=== PATIENT | male | born 1985 | race African-American/Black ===

== ENCOUNTER 2018-02-08 | Emergency (ER) | payer SELFPAY ==
--- NOTE | 2018-02-08 16:36 | ER ---
Nurse's Notes [facility] Name: Cirilo England Age: 32 yrs Sex: Male : 1985 Arrival Date: 02/08/2018 Time: 14:37 Bed 18 Private MD: Diagnosis: Diarrhea, unspecified Presentation: 02/08 14:54 Presenting complaint: Patient states: i have diarrhea since and vomiting hj started last Thursday; pain is 5/10; denies fever and chills;. Transition of care: patient was not received from another setting of care. Onset of symptoms was February 08, 2018. Care prior to arrival: None. 14:54 Method Of Arrival: Ambulatory hj 14:54 Acuity: NEO 3 hj Triage Assessment: 14:55 General: Appears in no apparent distress. uncomfortable, Behavior is calm, cooperative, hj appropriate for age. Pain: Complains of pain in abdomen. GI: Reports lower abdominal pain, diarrhea, nausea, vomiting. Historical: - Allergies: 14:55 No Known Drug Allergies; hj - Home Meds: 14:55 None [Active]; hj - PMHx: 14:55 None; hj - PSHx: 14:55 ankle surgery; hj - Immunization history:: Adult Immunizations up to date. - Social history:: Smoking status: Patient/guardian denies using tobacco. Screenin:40 Abuse screen: Denies threats or abuse. Nutritional screening: No deficits noted. em Tuberculosis screening: No symptoms or risk factors identified. Fall Risk None identified. Assessment: 14:56 GI: Abdomen is non-distended. hj 16:30 General: Appears in no apparent distress. comfortable, Behavior is calm, cooperative, em appropriate for age. Pain: Denies pain. Neuro: Level of Consciousness is awake, alert, obeys commands, Oriented to person, place, time, situation. Cardiovascular: Capillary refill < 3 seconds Patient's skin is warm and dry. Respiratory: Airway is patent Respiratory effort is even, unlabored, Respiratory pattern is regular, symmetrical. GI: Abdomen is flat, Bowel sounds present X 4 quads. Reports diarrhea, nausea. : No signs and/or symptoms were reported regarding the genitourinary system. EENT: No signs and/or symptoms were reported regarding the EENT system. Derm: Skin is intact, Skin is pink, warm \T\ dry. Musculoskeletal: Range of motion: intact in all extremities. 16:50 Reassessment: Patient appears in no apparent distress at this time. I agree with the iw above assessment by Indra Berry LVN. Vital Signs: 14:56 BP 122 / 69; Pulse 71; Resp 18; Temp 97.7(TE); Pulse Ox 100% on R/A; Weight 86.64 kg; hj Height 5 ft. 9 in. (175.26 cm); Pain 5/10; 14:56 Body Mass Index 28.21 (86.64 kg, 175.26 cm) ED Course: 14:37 Patient arrived in ED. mr 14:55 Triage completed. hj 14:56 Arm band placed on left wrist. 16:25 Godfrey Coyle PA is PHCP. 16:25 Godfrey Waite MD is Attending Physician. cp 16:40 Patient has correct armband on for positive identification. Bed in low position. Call em light in reach. Side rails up X2. 16:40 No provider procedures requiring assistance completed. Patient did not have IV access em during this emergency room visit. 16:43 Indra Berry LVN is Primary Nurse. em Administered Medications: No medications were administered Outcome: 16:35 Discharge ordered by MD. cp 17:08 Discharged to home ambulatory. em 17:08 Condition: good 17:08 Discharge instructions given to patient, Instructed on discharge instructions, follow up and referral plans. Demonstrated understanding of instructions, follow-up care. 17:09 Patient left the ED. em Signatures: Caty Bernard BerryIndra LVN LVN em Aliya Mayer RN RN Redd Fitch RN RN Godfrey Coyle PA PA cp
--- NOTE | 2018-02-08 16:36 | EDPHYS ---
Physician Documentation [facility] Name: Cirilo England Age: 32 yrs Sex: Male : 1985 Arrival Date: 02/08/2018 Time: 14:37 Bed 18 Private MD: ED Physician Godfrey Waite HPI: 02/08 16:30 This 32 yrs old Black Male presents to ER via Ambulatory with complaints of cp Vomiting/Diarrhea. 16:30 The patient presents to the emergency department with diarrhea, that is intermittent, 1 cp times today. Onset: The symptoms/episode began/occurred last , improved today. Possible causes: unknown. Associated signs and symptoms: Pertinent positives: abdominal pain, Pertinent negatives: constipation, dysuria, fever, vomiting. Severity of symptoms: in the emergency department the symptoms have improved markedly. Historical: - Allergies: 14:55 No Known Drug Allergies; hj - Home Meds: 14:55 None [Active]; hj - PMHx: 14:55 None; hj - PSHx: 14:55 ankle surgery; hj - Immunization history:: Adult Immunizations up to date. - Social history:: Smoking status: Patient/guardian denies using tobacco. ROS: 16:31 Eyes: Negative for injury, pain, redness, and discharge. cp 16:31 Constitutional: Negative for body aches, chills, fever, poor PO intake. 16:31 ENT: Negative for drainage from ear(s), ear pain, sore throat, difficulty swallowing, difficulty handling secretions. 16:31 Cardiovascular: Negative for chest pain. 16:31 Respiratory: Negative for cough, shortness of breath, wheezing. 16:31 Abdomen/GI: Positive for abdominal pain, diarrhea, Negative for vomiting, constipation, anorexia, black/tarry stool, rectal bleeding. 16:31 Back: Negative for pain at rest, pain with movement, radiated pain. 16:31 : Negative for urinary symptoms. 16:31 Skin: Negative for cellulitis, rash. Exam: 16:32 Head/Face: Normocephalic, atraumatic. cp 16:32 Constitutional: The patient appears in no acute distress, alert, awake, comfortable, non-toxic, well developed, well nourished. 16:32 Eyes: Periorbital structures: appear normal, Conjunctiva: normal, no exudate, no injection, Sclera: no appreciated abnormality, Lids and lashes: appear normal, bilaterally. 16:32 ENT: External ear(s): are unremarkable, Nose: is normal, Mouth: is normal, Posterior pharynx: is normal, airway is patent, no erythema, no exudate. 16:32 Chest/axilla: Inspection: normal. 16:32 Cardiovascular: Rate: normal, Rhythm: regular. 16:32 Respiratory: the patient does not display signs of respiratory distress, Respirations: normal, no use of accessory muscles, no retractions, no splinting, no tachypnea. 16:32 Abdomen/GI: Inspection: abdomen appears normal, Bowel sounds: active, all quadrants, Palpation: soft, in all quadrants, mild abdominal tenderness, in the left lower quadrant, voluntary guarding, is not appreciated, involuntary guarding, is not appreciated. 16:32 Back: pain, is absent, ROM is normal. 16:32 Skin: cellulitis, is not appreciated, no rash present. Vital Signs: 14:56 BP 122 / 69; Pulse 71; Resp 18; Temp 97.7(TE); Pulse Ox 100% on R/A; Weight 86.64 kg; hj Height 5 ft. 9 in. (175.26 cm); Pain 5/10; 14:56 Body Mass Index 28.21 (86.64 kg, 175.26 cm) MDM: 16:25 Patient medically screened. cp 16:35 Data reviewed: vital signs, nurses notes, and as a result, I will discharge patient. 16:35 Differential diagnosis: gastritis, diverticulitis, viral gastroenteritis, cp gastroenteritis. Counseling: I had a detailed discussion with the patient and/or guardian regarding: the historical points, exam findings, and any diagnostic results supporting the discharge/admit diagnosis, to return to the emergency department if symptoms worsen or persist or if there are any questions or concerns that arise at home. 02/08 16:35 [place] [facility] [place]: note for work; Complete Time: 16:43 cp Administered Medications: No medications were administered Disposition: 02/09 06:46 Co-signature as Attending Physician, Godfrey Watie MD I agree with the assessment and tamela plan of care. Disposition: 02/08/18 16:35 Discharged to Home. Impression: Diarrhea, unspecified. - Condition is Stable. - Discharge Instructions: Food Choices to Help Relieve Diarrhea, Adult, Diarrhea. - Work release form, Medication Reconciliation Form, Thank You Letter, Antibiotic Education, Prescription Opioid Use form. - Follow up: Private Physician; When: 1 - 2 days; Reason: Recheck today's complaints. - Problem is new. - Symptoms have improved. Signatures: Godfrey Waite MD MD cha Munoz, Edgar, BANKING MANAGEMENT CONSULTING MANAGER BANKING MANAGEMENT CONSULTING MANAGER Redd Glez RN RN Godfrey Turner PA PA cp
== END 2018-02-08 17:09 | disposition home or self-care (01) ==
DX: R19.7 Diarrhea, unspecified (principal)
CPT/HCPCS: 99281

== ENCOUNTER 2018-05-21 08:29 | Emergency (ER) | payer SELFPAY ==
--- NOTE | 2018-05-21 09:21 | RAD REPORT ---
EXAM DESCRIPTION: RAD - Chest Pa And Lat (2 Views) - 05/21/2018 9:11 am CLINICAL HISTORY: CHEST PAIN Chest pain. COMPARISON: Chest Single View dated 12/15/2017; CHEST PA AND LAT 2 VIEW dated 08/11/2011; CHEST PA AND LAT 2 VIEW dated 03/28/2007 FINDINGS: The lungs are clear. The heart is normal in size. No displaced fractures. IMPRESSION: No acute or concerning finding suspected.
[2018-05-21 09:23] LABS: Absolute Lymphocytes (CBC) 2.4 K/uL (0.7-4.9); Absolute Monocytes 0.5 K/uL (0.1-1.3); Absolute Neutrophil 7.3 K/uL (1.8-8.0); Basophils % 0.4 % (0-1.3); Eosinophils % 0.4 % (0-4.4); Hematocrit 43.4 % (39.6-49.0); Lymphocytes % 23.2 % (15.3-44.8); MCH 30.5 pg (27.0-35.0); MCV 87.4 fL (80-100); MPV 8.9 fL (7.6-11.3); RBC Red Blood Cell Count 4.96 M/uL (4.33-5.43)
[2018-05-21 09:38] LABS: BUN Blood Urea Nitrogen 12 mg/dL (7-18); Bicarbonate 32 mmol/L (21-32); Glucose Level 119 mg/dL (74-106); Potassium 3.5 mmol/L (3.5-5.1); Sodium Level 140 mmol/L (136-145)
--- NOTE | 2018-05-21 09:49 | ER ---
Nurse's Notes [facility] Name: Cirilo England Age: 32 yrs Sex: Male : 1985 Arrival Date: 05/21/2018 Time: 08:31 Bed 7 Private MD: None, None Diagnosis: Acute pericarditis Presentation: 05/21 08:45 Presenting complaint: Patient states: C/O left side chest pain, under the left breast jl7 feels like pinching, x 2 days. Was intermittent, now it's constant. Denies SOB, N/V. Transition of care: patient was not received from another setting of care. Onset of symptoms was May 19, 2018. Risk Assessment: Do you want to hurt yourself or someone else? Patient reports no desire to harm self or others. Initial Sepsis Screen: Does the patient meet any 2 criteria? No. Patient's initial sepsis screen is negative. Does the patient have a suspected source of infection? No. Patient's initial sepsis screen is negative. Care prior to arrival: None. 08:45 Method Of Arrival: Ambulatory [facility] 08:45 Acuity: NEO 3 jl7 Triage Assessment: 08:45 General: Appears in no apparent distress. uncomfortable, Behavior is calm, cooperative, jl7 appropriate for age. Pain: Complains of pain in left breast Pain does not radiate. Pain currently is 6 out of 10 on a pain scale. Quality of pain is described as pinching, Pain began 2-3 days ago. Is continuous. EENT: No signs and/or symptoms were reported regarding the EENT system. Neuro: Level of Consciousness is awake, alert, obeys commands, Oriented to person, place, time, situation. Cardiovascular: Patient's skin is warm and dry. Respiratory: Airway is patent Respiratory effort is even, unlabored, Respiratory pattern is regular, symmetrical. GI: Patient currently denies diarrhea, nausea, vomiting. : No signs and/or symptoms were reported regarding the genitourinary system. Derm: Skin is dry, Skin is normal, Skin temperature is warm. Musculoskeletal: No signs and/or symptoms reported regarding the musculoskeletal system. Historical: - Allergies: 08:54 No Known Allergies; jl7 - Home Meds: 08:54 None [Active]; jl7 - PMHx: 08:54 None; jl7 - PSHx: 08:54 left ankle; jl7 - Immunization history:: Adult Immunizations not up to date. - Ebola Screening: : No symptoms or risks identified at this time. - Family history:: not pertinent. - Social history:: Smoking status: Patient/guardian denies using tobacco. - Hospitalizations: : No recent hospitalization is reported. Screenin:45 Abuse screen: Denies threats or abuse. Denies injuries from another. Nutritional jl7 screening: No deficits noted. Tuberculosis screening: No symptoms or risk factors identified. Fall Risk IV access (20 points). Assessment: 08:45 General: See triage assessment. jl7 09:45 Reassessment: Patient and/or family updated on plan of care and expected duration. Pain jl7 level reassessed. Patient is alert, oriented x 3, equal unlabored respirations, skin warm/dry/pink. Pain: Complains of pain in left breast Pain does not radiate. Pain currently is 6 out of 10 on a pain scale. Quality of pain is described as pinching. Vital Signs: 08:45 BP 118 / 89; Pulse 72; Resp 16 S; Temp 98.9(O); Pulse Ox 97% on R/A; Weight 86.18 kg jl7 (R); Height 5 ft. 9 in. (175.26 cm) (R); Pain 6/10; 09:45 BP 134 / 80; Pulse 69; Resp 16; Pulse Ox 99% ; jl7 08:45 Body Mass Index 28.06 (86.18 kg, 175.26 cm) jl7 ED Course: 08:31 Patient arrived in ED. mr 08:31 None, None is Private Physician. mr 08:45 No provider procedures requiring assistance completed. Patient maintains SpO2 jl7 saturation greater than 95% on room air. 08:45 Arm band placed on right wrist. jl7 08:45 Patient has correct armband on for positive identification. Placed in gown. Bed in low jl7 position. Call light in reach. Side rails up X 1. media monitor on. Pulse ox on. NIBP on. Warm blanket given. 08:46 Yue Sheffield RN is Primary Nurse. jl7 08:48 Wayne Benjamin MD is Attending Physician. rn 08:54 Triage completed. jl7 08:55 EKG done, by computer technology instructor. reviewed by Wayne Benjamin MD. at1 08:56 Inserted saline lock: 20 gauge in right antecubital area, using aseptic technique. ae1 Blood collected. 09:07 Patient moved to radiology AMBULATED, REFUSED WHEELCHAIR. jb2 09:10 X-ray completed. Patient tolerated procedure well. Patient moved back from radiology. jb2 09:10 XRAY Chest Pa And Lat (2 Views) In Process Unspecified. EDMS 10:03 IV discontinued, intact, bleeding controlled, No redness/swelling at site. Pressure jl7 dressing applied. Administered Medications: No medications were administered Outcome: 09:49 Discharge ordered by . rn 10:03 Discharged to home ambulatory, with family. jl7 10:03 Condition: stable 10:03 Discharge instructions given to patient, family, Instructed on discharge instructions, follow up and referral plans. medication usage, Demonstrated understanding of instructions, follow-up care, medications, Prescriptions given X 1. 10:03 Patient left the ED. jl7 Signatures: Dispatcher [employer] EDTN Caty Bernard mr CoelloRosendo jb2 Wayne Benjamin MD MD rn gonzales, Amanda, lead carpenter EKG Tat1 Chan Wong, RN RN ae1 Yue Sheffield, RN RN jl7
--- NOTE | 2018-05-21 09:50 | EDPHYS ---
Physician Documentation [facility] Name: Cirilo England Age: 32 yrs Sex: Male : 1985 Arrival Date: 05/21/2018 Time: 08:31 Bed 7 Private MD: None, None ED Physician Wayne Benjamin HPI: 05/21 09:44 This 32 yrs old Black Male presents to ER via Ambulatory with complaints of Chest Pain. rn 09:44 The patient or guardian reports chest pain that is located primarily in the anterior rn chest wall, left. The pain does not radiate. Associated signs and symptoms: Pertinent positives: None. Pertinent negatives: abdominal pain, cough, diaphoresis, near syncope, palpitations, shortness of breath, syncope, vomiting. The chest pain is described as aching, sharp. Duration: The patient or guardian reports multiple episodes, that are intermittent. Modifying factors: The symptoms are alleviated by nothing. the symptoms are aggravated by nothing. Severity of pain: At its worst the pain was mild in the emergency department the pain is unchanged. The patient has not experienced similar symptoms in the past. The patient has not recently seen a physician. Reports left sided chest pain, no radiation, not worse with exertion, no recent trauma, no fever/cough, no recent surgery, no famhx of early/sudden cardiac .. Historical: - Allergies: 08:54 No Known Allergies; jl7 - Home Meds: 08:54 None [Active]; jl7 - PMHx: 08:54 None; jl7 - PSHx: 08:54 left ankle; jl7 - Immunization history:: Adult Immunizations not up to date. - Ebola Screening: : No symptoms or risks identified at this time. - Family history:: not pertinent. - Social history:: Smoking status: Patient/guardian denies using tobacco. - Hospitalizations: : No recent hospitalization is reported. ROS: 09:44 Constitutional: Negative for fever, chills, and weight loss, Eyes: Negative for injury, rn pain, redness, and discharge, Neck: Negative for injury, pain, and swelling, Cardiovascular: Negative for palpitations, and edema, Respiratory: Negative for shortness of breath, cough, wheezing, and pleuritic chest pain, Abdomen/GI: Negative for abdominal pain, nausea, vomiting, diarrhea, and constipation, MS/Extremity: Negative for injury and deformity, Skin: Negative for injury, rash, and discoloration, Neuro: Negative for headache, weakness, numbness, tingling, and seizure. Exam: 09:44 Constitutional: This is a well developed, well nourished patient who is awake, alert, rn and in no acute distress. Head/Face: Normocephalic, atraumatic. Eyes: Pupils equal round and reactive to light, extra-ocular motions intact. Lids and lashes normal. Conjunctiva and sclera are non-icteric and not injected. Cornea within normal limits. Periorbital areas with no swelling, redness, or edema. Cardiovascular: Regular rate and rhythm with a normal S1 and S2. No gallops, murmurs, or rubs. Normal PMI, no JVD. No pulse deficits. Respiratory: Lungs have equal breath sounds bilaterally, clear to auscultation and percussion. No rales, rhonchi or wheezes noted. No increased work of breathing, no retractions or nasal flaring. Abdomen/GI: Soft, non-tender, with normal bowel sounds. No distension or tympany. No guarding or rebound. No evidence of tenderness throughout. MS/ Extremity: Pulses equal, no cyanosis. Neurovascular intact. Full, normal range of motion. Equal circumference. Neuro: Awake and alert, GCS 15, oriented to person, place, time, and situation. Cranial nerves II-XII grossly intact. Motor strength 5/5 in all extremities. Sensory grossly intact. Cerebellar exam normal. Normal gait. Vital Signs: 08:45 BP 118 / 89; Pulse 72; Resp 16 S; Temp 98.9(O); Pulse Ox 97% on R/A; Weight 86.18 kg 7 (R); Height 5 ft. 9 in. (175.26 cm) (R); Pain 6/10; 09:45 BP 134 / 80; Pulse 69; Resp 16; Pulse Ox 99% ; jl7 08:45 Body Mass Index 28.06 (86.18 kg, 175.26 cm) 7 MDM: 08:48 Patient medically screened. rn 09:44 Differential diagnosis: acute pericarditis, anxiety, coronary artery disease chest wall rn pain, costochondritis, gastroesophageal reflux disease (GERD), pleurisy, pneumothorax, pulmonary embolus. Data reviewed: vital signs, nurses notes, lab test result(s), EKG, radiologic studies, plain films, and as a result, I will discharge patient. Counseling: I had a detailed discussion with the patient and/or guardian regarding: the historical points, exam findings, and any diagnostic results supporting the discharge/admit diagnosis, lab results, radiology results, the need for outpatient follow up, to return to the emergency department if symptoms worsen or persist or if there are any questions or concerns that arise at home. Special discussion: Based on the patient's history, exam, and Dx evaluation, there is no indication for emergent intervention or inpatient Tx. It is understood by the patient/guardian that if the Sx's persist or worsen they need to return immediately for re-evaluation. I discussed with the patient/guardian in detail that at this point there is no indication for admission to the hospital. It is understood, however, that if the symptoms persist or worsen the patient needs to return immediately for re-evaluation. ED course: Meets PERC criteria, d-dimer canceled, will dc home with ibuprofen, ECG shows early repolarization vs pericarditis. . 05/21 08:55 Order name: CBC with Diff; Complete Time: 09:44 rn 05/21 08:55 Order name: Basic Metabolic Panel; Complete Time: 09:44 rn 05/21 08:55 Order name: Troponin (emerg Dept Use Only); Complete Time: 09:50 rn 05/21 08:55 Order name: EKG; Complete Time: 08:55 rn 05/21 08:55 Order name: XRAY Chest Pa And Lat (2 Views); Complete Time: 09:23 rn 05/21 08:55 Order name: IV Start; Complete Time: 08:56 rn 05/21 08:55 Order name: EKG - Nurse/Tech; Complete Time: 08:56 rn Administered Medications: No medications were administered Disposition: 05/21/18 09:49 Discharged to Home. Impression: Acute pericarditis. - Condition is Stable. - Discharge Instructions: Nonspecific Chest Pain, Pericarditis. - Prescriptions for Ibuprofen 800 mg Oral Tablet - take 1 tablet by ORAL route every 12 hours As needed take with food; 20 tablet. - Medication Reconciliation Form, Thank You Letter, Antibiotic Education, Prescription Opioid Use, Work release form form. - Follow up: Private Physician; When: As needed; Reason: Recheck today's complaints, Re-evaluation by your physician. - Problem is new. - Symptoms have improved. Signatures: Dispatcher [employer] [facility] Wayne Benjamin MD MD rn Gallardo, Ana ag Leal, Jahala, RN RN jl7 Corrections: (The following items were deleted from the chart) 09:46 09:46 Labs - recollect needed ordered. ag 09:49 08:55 D-DIMER+[id number].BRZ ordered. [facility] 10:03 09:49 05/21/2018 09:49 Discharged to Home. Impression: Acute pericarditis. Condition is jl7 Stable. Forms are Medication Reconciliation Form, Thank You Letter, Antibiotic Education, Prescription Opioid Use. Follow up: Private Physician; When: As needed; Reason: Recheck today's complaints, Re-evaluation by your physician. Problem is new. Symptoms have improved. rn
--- NOTE | 2018-05-21 12:43 | EKG ---
Test Date: 2018-05-21 Test Time: 08:55:22 Hand Cooper Helper: GUERO MEASUREMENT RESULTS: Intervals: Rate: 72 GA: 156 QRSD: 88 QT: 364 QTc: 398 [place]: P: 44 GA: 156 QRS: 24 T: 30 INTERPRETIVE STATEMENTS: Normal sinus rhythm Early repolarization Normal ECG Compared to ECG 09/18/2011 17:14:53 No significant changes Electronically Signed On 05-21-18 12:43:36 CDT by Phillip De Jesus
== END 2018-05-21 10:03 | disposition home or self-care (01) ==
LOC: ER 08:29
DX: I30.9 Acute pericarditis, unspecified (principal)
CPT/HCPCS: 36415; 71046; 80048; 84484; 85025; 93005; 99285

== ENCOUNTER 2020-08-20 16:06 | Emergency (ER) | payer SELFPAY ==
[2020-08-20] MEDS ORDERED: IBUPROFEN 400 MG TAB ONE (16:55)
[2020-08-20] MEDS ORDERED: AMOX/K CLAV 875 MG TAB ONE (17:40)
--- NOTE | 2020-08-20 18:21 | EDPHYS ---
Physician Documentation [facility] Name: Cirilo England Age: 35 yrs Sex: Male : 1985 Arrival Date: 08/20/2020 Time: 16:11 Bed 19 Private MD: ED Physician Wayne Benjamin HPI: 08/20 18:50 This 35 yrs old Black Male presents to ER via Ambulatory with complaints of Cough, kb Chest Pain. 18:50 The patient or guardian reports cough, that is intermittent, described as mild, with no kb sputum, flu symptoms, myalgias. Onset: The symptoms/episode began/occurred Onset: The symptoms/episode began/occurred 6 day(s) ago. The patient has not experienced similar symptoms in the past. The patient has not recently seen a physician. 18:51 Severity of symptoms: At their worst the symptoms were moderate, in the emergency kb department the symptoms are unchanged. Modifying factors: The symptoms are alleviated by nothing, the symptoms are aggravated by nothing. Associated signs and symptoms: Pertinent positives: rhinorrhea, sore throat, Pertinent negatives: chest pain, diarrhea, ear ache, fever, nausea, vomiting. 18:51 Pt reports he started having abd pain 6 days ago that got better, now is having cough, kb sore throat and intermittent shortness of breath. Was unaware of fever until arrival. . Historical: - Allergies: 16:27 No Known Drug Allergies; ll1 - PSHx: 16:27 ankle sx; ll1 - Immunization history:: Flu vaccine is not up to date. - Social history:: Smoking status: Patient denies any tobacco usage or history of. ROS: 18:49 Neck: Negative for injury, pain, and swelling, Cardiovascular: Negative for chest pain, kb palpitations, and edema, Back: Negative for injury and pain, MS/Extremity: Negative for injury and deformity, Skin: Negative for injury, rash, and discoloration. 18:49 Constitutional: Positive for fatigue, malaise. 18:49 Respiratory: Positive for cough, Negative for dyspnea on exertion, hemoptysis, orthopnea, pleurisy, shortness of breath, sputum production, wheezing. 18:49 Abdomen/GI: Positive for abdominal pain, Negative for nausea, vomiting, and diarrhea. 18:49 Neuro: Positive for headache. Exam: 18:49 Constitutional: This is a well developed, well nourished patient who is awake, alert, kb and in no acute distress. Head/Face: Normocephalic, atraumatic. ENT: Nares patent. No nasal discharge, no septal abnormalities noted. Tympanic membranes are normal and external auditory canals are clear. Oropharynx with no redness, swelling, or masses, exudates, or evidence of obstruction, uvula midline. Mucous membranes moist. Neck: Trachea midline, no thyromegaly or masses palpated, and no cervical lymphadenopathy. Supple, full range of motion without nuchal rigidity, or vertebral point tenderness. No Meningismus. Chest/axilla: Normal chest wall appearance and motion. Nontender with no deformity. No lesions are appreciated. Cardiovascular: Regular rate and rhythm with a normal S1 and S2. No gallops, murmurs, or rubs. Normal PMI, no JVD. No pulse deficits. Respiratory: Lungs have equal breath sounds bilaterally, clear to auscultation and percussion. No rales, rhonchi or wheezes noted. No increased work of breathing, no retractions or nasal flaring. Abdomen/GI: Soft, non-tender, with normal bowel sounds. No distension or tympany. No guarding or rebound. No evidence of tenderness throughout. Skin: Warm, dry with normal turgor. Normal color with no rashes, no lesions, and no evidence of cellulitis. MS/ Extremity: Pulses equal, no cyanosis. Neurovascular intact. Full, normal range of motion. Neuro: Awake and alert, GCS 15, oriented to person, place, time, and situation. Cranial nerves II-XII grossly intact. Motor strength 5/5 in all extremities. Sensory grossly intact. Cerebellar exam normal. Normal gait. Vital Signs: 16:24 BP 128 / 85; Pulse 112; Resp 18; Temp 103.3; Pulse Ox 96% on R/A; Weight 92.99 kg; ll1 Height 5 ft. 9 in. (175.26 cm); Pain 8/10; 17:35 BP 111 / 48; Pulse 93; Resp 17; Temp 99.5; Pulse Ox 95% ; bp 18:26 BP 117 / 52; Pulse 87; Resp 17; Pulse Ox 95% ; bp 16:24 Body Mass Index 30.27 (92.99 kg, 175.26 cm) ll1 MDM: 16:33 Patient medically screened. kb 18:49 Data reviewed: vital signs, nurses notes. Data interpreted: Pulse oximetry: on room air kb is 95 %. Interpretation: normal. Counseling: I had a detailed discussion with the patient and/or guardian regarding: the historical points, exam findings, and any diagnostic results supporting the discharge/admit diagnosis, lab results, radiology results, the need for outpatient follow up, a family practitioner, to return to the emergency department if symptoms worsen or persist or if there are any questions or concerns that arise at home. 08/20 16:33 Order name: Flu; Complete Time: 17:31 kb 08/20 16:33 Order name: Strep; Complete Time: 17:23 kb 08/20 16:33 Order name: Chest Single View XRAY kb Administered Medications: 16:45 Drug: Ibuprofen 800 mg Route: PO; bp 17:33 Follow up: Response: Temperature is decreased bp 17:33 Drug: Augmentin 875 mg Route: PO; bp 17:33 Follow up: Response: No adverse reaction bp Disposition: 18:50 Co-signature as Attending Physician, Wayne Benjamin MD. rn Disposition: 08/20/20 18:20 Discharged to Home. Impression: Streptococcal pharyngitis. - Condition is Stable. - Discharge Instructions: Strep Throat, [id number]. - Prescriptions for Augmentin 875- 125 mg Oral Tablet - take 1 tablet by ORAL route every 12 hours for 10 days; 20 tablet. - Medication Reconciliation Form, Thank You Letter, Antibiotic Education, Prescription Opioid Use, Work release form form. - Follow up: Emergency Department; When: As needed; Reason: Worsening of condition. Follow up: Private Physician; When: 2 - 3 days; Reason: Recheck today's complaints, Continuance of care, Re-evaluation by your physician. Signatures: Dispatcher [employer] EDAZ Ora Baca, BELTING INSPECTOR-C BELTING INSPECTOR-Wayne Stephen MD MD rn Peltier, Brian RN RN Tri Chandra RN RN ll1 Corrections: (The following items were deleted from the chart) 18:28 18:20 08/20/2020 18:20 Discharged to Home. Impression: Streptococcal pharyngitis. bp Condition is Stable. Forms are Medication Reconciliation Form, Thank You Letter, Antibiotic Education, Prescription Opioid Use. Follow up: Emergency Department; When: As needed; Reason: Worsening of condition. Follow up: Private Physician; When: 2 - 3 days; Reason: Recheck today's complaints, Continuance of care, Re-evaluation by your physician. kb 18:51 18:50 Onset: The symptoms/episode began/occurred [facility]
--- NOTE | 2020-08-20 18:21 | ER ---
Nurse's Notes [facility] Name: Cirilo England Age: 35 yrs Sex: Male : 1985 Arrival Date: 08/20/2020 Time: 16:11 Bed 19 Private MD: Diagnosis: Streptococcal pharyngitis Presentation: 08/20 16:24 Chief complaint: Patient states: Fatigue, abdominal pain started last Thursday. Feels ll1 hot at home. Cough and CP began today with SOB. Coronavirus screen: Client denies travel out of the [place] in the last 14 days. congestion, cough unrelated to allergies, difficulty breathing, fatigue, fever, muscle pain, sore throat, Client presents with at least one sign or symptom that may indicate coronavirus-19. Standard/surgical mask placed on the client. Ebola Screen: Patient denies travel to an Ebola-affected area in the 21 days before illness onset. Initial Sepsis Screen: Does the patient meet any 2 criteria? Temp <36.0*C (96.8*F)) or > 38.3*C (100.9*F). HR > 90 bpm. Yes Does the patient have a suspected source of infection? Yes: Productive cough/pneumonia. Risk Assessment: Do you want to hurt yourself or someone else? Patient reports no desire to harm self or others. Onset of symptoms was August 15, 2020. 16:24 Method Of Arrival: Ambulatory ll1 16:24 Acuity: NEO 2 ll1 Triage Assessment: 16:30 General: Appears in no apparent distress. uncomfortable, ill, Behavior is calm, bp cooperative, appropriate for age. Pain: Complains of pain in chest. EENT: Reports nasal congestion. Neuro: No deficits noted. Cardiovascular: Reports CHEST CONGESTION. Respiratory: Reports cough that is. GI: No signs and/or symptoms were reported involving the gastrointestinal system. : No signs and/or symptoms were reported regarding the genitourinary system. Derm: No deficits noted. Musculoskeletal: No deficits noted. Historical: - Allergies: 16:27 No Known Drug Allergies; ll1 - PSHx: 16:27 ankle sx; ll1 - Immunization history:: Flu vaccine is not up to date. - Social history:: Smoking status: Patient denies any tobacco usage or history of. Screenin:30 Abuse screen: Denies threats or abuse. Denies injuries from another. Nutritional bp screening: No deficits noted. Tuberculosis screening: No symptoms or risk factors identified. Fall Risk None identified. Assessment: 16:30 General: SEE TRIAGE NOTE. Pain: Pain does not radiate. Pain began 2-3 days ago. bp 17:36 Reassessment: TEMP IMPROVED, VS STABLE ON MONITOR. DISPO PENDING. bp 18:26 Reassessment: PT D/C HOME AMBULATORY, DX WITH STREP PHARYNGITIS. bp Vital Signs: 16:24 BP 128 / 85; Pulse 112; Resp 18; Temp 103.3; Pulse Ox 96% on R/A; Weight 92.99 kg; ll1 Height 5 ft. 9 in. (175.26 cm); Pain 8/10; 17:35 BP 111 / 48; Pulse 93; Resp 17; Temp 99.5; Pulse Ox 95% ; bp 18:26 BP 117 / 52; Pulse 87; Resp 17; Pulse Ox 95% ; bp 16:24 Body Mass Index 30.27 (92.99 kg, 175.26 cm) ll1 ED Course: 16:11 Patient arrived in ED. ds1 16:26 Triage completed. ll1 16:27 Arm band placed on. ll1 16:30 Patient has correct armband on for positive identification. Bed in low position. Call bp light in reach. Side rails up X2. Pulse ox on. NIBP on. 16:33 Ora Baca FNP-C is [facility]. kb 16:33 Wayne Benjamin MD is Attending Physician. kb 16:40 Saleem Perez, TANNER is Primary Nurse. bp 17:48 Chest Single View XRAY In Process Unspecified. EDMS 18:27 No provider procedures requiring assistance completed. Patient did not have IV access bp during this emergency room visit. Patient maintains SpO2 saturation greater than 95% on room air. Administered Medications: 16:45 Drug: Ibuprofen 800 mg Route: PO; bp 17:33 Follow up: Response: Temperature is decreased bp 17:33 Drug: Augmentin 875 mg Route: PO; bp 17:33 Follow up: Response: No adverse reaction bp Outcome: 18:20 Discharge ordered by . kb 18:27 Discharged to home ambulatory. bp 18:27 Condition: stable 18:27 Discharge instructions given to patient, Instructed on discharge instructions, follow up and referral plans. medication usage, Demonstrated understanding of instructions, follow-up care, medications, Prescriptions given X 1. 18:28 Patient left the ED. bp Addendum: 08/27/2020 09:38 Addendum: Radiology Result: Developing left mid lung infiltrate/pneumonia. Called to a a5 check on pt, pt states feeling better. Dr. Waite states Augmentin should cover for the pneumonia. Pt verbalizes understanding to follow-up with PCP. Signatures: Dispatcher [employer] EDMI Ora Baca, RAJWINDER-Leland SENIOR PRINCIPAL PROCESS ENGINEER-Emiliana Delaney ds1 Deloris Berry, RN RN aa5 Saleem Perez RN RN bp Tri Ashton RN RN ll1
--- NOTE | 2020-08-20 18:52 | RAD REPORT ---
EXAM DESCRIPTION: RAD - Chest Single View - 08/20/2020 5:48 pm CLINICAL HISTORY: COUGH Chest pain. COMPARISON: Chest Pa And Lat (2 Views) dated 05/21/2018; Chest Single View dated 12/15/2017; CHEST PA A ND LAT 2 VIEW dated 08/11/2011; CHEST PA AND LAT 2 VIEW dated 03/28/2007 FINDINGS: Portable technique limits examination quality. Mild left mid lung opacities seen suspicious for developing pneumonia/ infiltrate. The heart is morteza l in size. No displaced fractures. IMPRESSION: Developing left mid lung infiltrate/pneumonia.
[2020-08-20 19:46] VITALS: TEMP 99.5; O2SAT 95
[2020-08-20 19:47] VITALS: BP 117/52
== END 2020-08-20 18:28 | disposition home or self-care (01) ==
LOC: ER 16:06
DX: J02.0 Streptococcal pharyngitis (principal)
CPT/HCPCS: 71045; 87081; 87804; 99284

== ENCOUNTER 2021-09-25 22:19 | Emergency (ER) | payer SELFPAY ==
[2021-09-25] MEDS ORDERED: TETANUS & DIPHTHERIA TOX,ADULT 0.5 ML VIAL ONE (23:42)
--- NOTE | 2021-09-26 01:11 | ER ---
Nurse's Notes [facility] Name: Cirilo England Age: 36 yrs Sex: Male : 1985 Arrival Date: 09/25/2021 Time: 22:28 Bed 13 Private MD: Diagnosis: Burn of second degree of forearm-right Presentation: 09/25 22:50 Chief complaint: Patient states: he was at work yesterday and received burn to right bb forearm from caustic detergent arm was flushed yesterday but it looks worse today denies pain at this time. Coronavirus screen: At this time, the client does not indicate any symptoms associated with coronavirus-19. Ebola Screen: No symptoms or risks identified at this time. 22:50 Method Of Arrival: Ambulatory bb 23:02 Initial Sepsis Screen: Does the patient meet any 2 criteria? No. Patient's initial bb sepsis screen is negative. Does the patient have a suspected source of infection? No. Patient's initial sepsis screen is negative. Risk Assessment: Do you want to hurt yourself or someone else? Patient reports no desire to harm self or others. Onset of symptoms was September 24, 2021. 23:02 Acuity: NEO 5 bb 23:20 Note Poison Control was contacted regarding chemical burn. Poison Control instructions [facility] were as followed: Irrigate affected area, give symptomatic and supportive care as needed, obtain Ekg and Electrolytes levels, consult burn unit, ensure Tetanus is up to date. Case # [id number]. Triage Assessment: 09/26 01:47 General: Behavior is calm. 3 01:48 Injury Description: Patient sustained third-degree burn(s) to right arm. ja3 Historical: - Allergies: 09/25 23:03 No Known Allergies; bb - Home Meds: 23:03 None [Active]; bb - PMHx: 23:03 None; bb - PSHx: 23:03 ankle x 2; neck surgery; bb - Immunization history:: Adult Immunizations up to date, Client reports having NOT received the Covid vaccine. - Social history:: Smoking status: unknown. Screenin:06 Abuse screen: Denies threats or abuse. Nutritional screening: No deficits noted. ja3 Tuberculosis screening: No symptoms or risk factors identified. Fall Risk None identified. 09/26 01:43 Abuse screen: Denies threats or abuse. ja3 Assessment: 09/25 23:00 General: Appears in no apparent distress. Pain: Denies pain. Derm: Wound noted right ja3 arm Wound is Several scattered, large fluid filled blisters on right upper forearm, open areas noted where previous blisters have popped and area is not covered by skin any longer. Skin is reddened and discolored from chemical burn. Injury Description: Chemical burn from caustic detergent. Vital Signs: 22:50 BP 141 / 85; Pulse 76; Resp 16; Temp 98.1(O); Pulse Ox 98% on R/A; Weight 90.72 kg (R); bb Height 5 ft. 9 in. (175.26 cm) (R); Pain 0/10; 23:05 BP 127 / 85; Pulse 70; Resp 15; Temp 98.7; Pulse Ox 98% ; Pain 3/10; ja3 22:50 Body Mass Index 29.53 (90.72 kg, 175.26 cm) bb ED Course: 22:28 Patient arrived in ED. cf2 22:47 Godfrey Coyle PA is PHCP. cp 22:47 Alea Mendes MD is Attending Physician. cp 23:03 Triage completed. bb 23:03 Arm band placed on Patient placed in an exam room, on a stretcher, on pulse oximetry. bb 23:07 Patient has correct armband on for positive identification. Bed in low position. Call ja3 light in reach. Side rails up X 1. tubular splitting machine tender on. Pulse ox on. NIBP on. Door closed. Noise minimized. Warm blanket given. 23:07 No provider procedures requiring assistance completed. ja3 23:10 Sloan Ramirez, TANNER is Primary Nurse. ja3 09/26 01:43 No provider procedures requiring assistance completed. ja3 01:47 Bandage applied. ja3 01:48 Patient did not have IV access during this emergency room visit. ja3 Administered Medications: 00:12 Drug: Tetanus-Diphtheria Toxoid Adult 0.5 ml {Arts Manager: [employer]. Exp: jaUrsula 03/29/2023. Lot #: [id number]. } Route: IM; Site: right deltoid; 00:13 Follow up: Response: No adverse reaction ja3 01:40 Follow up: Response: No adverse reaction ja3 Outcome: 01:10 Discharge ordered by MD. duarte 01:37 Discharged to home ambulatory. ja3 01:37 Condition: good 01:37 Discharge instructions given to patient. 01:49 Patient left the ED. ja3 Signatures: Loly Mensah, RN RN Godfrey Jordan PA PA cp Frazier, Celesta 2 Sloan Ramirez RN RN ja3
--- NOTE | 2021-09-26 01:11 | EDPHYS ---
Physician Documentation [facility] Name: Ciriol England Age: 36 yrs Sex: Male : 1985 Arrival Date: 09/25/2021 Time: 22:28 Bed 13 Private MD: ED Physician Alea Mendes HPI: 09/25 22:54 This 36 yrs old Black Male presents to ER via Unassigned with complaints of Chemical cp Burn. 22:55 The patient presents with a burn as a result of a chemical exposure, caustic detergent, cp at work, is located on the right forearm. 22:55 Onset: The symptoms/episode began/occurred yesterday. Burn type and severity: 2nd cp degree: approximately 2.5% total body surface area of second degree injury, of the right forearm. Associated signs and symptoms: none. Historical: - Allergies: 23:03 No Known Allergies; bb - Home Meds: 23:03 None [Active]; bb - PMHx: 23:03 None; bb - PSHx: 23:03 ankle x 2; neck surgery; bb - Immunization history:: Adult Immunizations up to date, Client reports having NOT received the Covid vaccine. - Social history:: Smoking status: unknown. ROS: 23:00 Constitutional: Negative for fever. cp 23:00 Respiratory: Negative for cough, shortness of breath, wheezing. 23:00 Abdomen/GI: Negative for abdominal pain, nausea, vomiting, and diarrhea. 23:00 Skin: Positive for burn, of the right forearm. 23:00 Cardiovascular: Negative for chest pain. cp 23:00 Neuro: Negative for headache. 23:00 All other systems are negative. Exam: 23:05 Constitutional: The patient appears in no acute distress, alert, awake, comfortable, cp non-toxic, well developed, well nourished. 23:05 Head/Face: Normocephalic, atraumatic. cp 23:05 Cardiovascular: Rate: normal. 23:05 Respiratory: the patient does not display signs of respiratory distress, Respirations: normal, no use of accessory muscles, no retractions, labored breathing, is not present. 23:05 Skin: injury, burn(s), 2nd degree burn injury covers approximately 2.5% of the total body surface area, and is located on the right forearm, that can be described as without bleeding, mild swelling, multiple skin blisters. 23:57 ECG was reviewed by the Attending Physician. cp Vital Signs: 22:50 BP 141 / 85; Pulse 76; Resp 16; Temp 98.1(O); Pulse Ox 98% on R/A; Weight 90.72 kg (R); bb Height 5 ft. 9 in. (175.26 cm) (R); Pain 0/10; 23:05 BP 127 / 85; Pulse 70; Resp 15; Temp 98.7; Pulse Ox 98% ; Pain 3/10; ja3 22:50 Body Mass Index 29.53 (90.72 kg, 175.26 cm) bb MDM: 22:50 Patient medically screened. 09/26 00:00 Differential diagnosis: 1st degree huang, 2nd degree huang, 3rd degree huang, multiple cp trauma. 01:10 Data reviewed: vital signs, nurses notes, and as a result, I will discharge patient. 01:10 Counseling: I had a detailed discussion with the patient and/or guardian regarding: the cp historical points, exam findings, and any diagnostic results supporting the discharge/admit diagnosis, the need for outpatient follow up, [facility] in [place], to return to the emergency department if symptoms worsen or persist or if there are any questions or concerns that arise at home. Response to treatment: the patient's symptoms have markedly improved after treatment. 09/25 22:51 Order name: Wound Care: irrigate wound; Complete Time: 00:12 cp 09/25 23:25 Order name: EKG; Complete Time: 23:26 09/25 23:25 Order name: EKG - Nurse/Tech; Complete Time: 00:13 cp 09/25 23:57 Order name: Dressing - Wound: non-stick, bacitracin over burn; Complete Time: 01:40 cp EC/10 23:57 Rate is 79 beats/min. Rhythm is regular. RI interval is normal. QRS interval is normal. cp QT interval is normal. T waves are Inverted in lead aVR. Interpreted by me. Reviewed by me. Administered Medications: 09/26 00:12 Drug: Tetanus-Diphtheria Toxoid Adult 0.5 ml {Deck And Hull Assembler: Sec[employer] Mail. Exp: ja3 03/29/2023. Lot #: [id number]. } Route: IM; Site: right deltoid; 00:13 Follow up: Response: No adverse reaction ja3 01:40 Follow up: Response: No adverse reaction ja3 Disposition: 01:20 Chart complete. cp 05:46 Co-signature as Attending Physician, Alea Mendes MD I agree with the assessment and sp3 plan of care. Disposition Summary: 09/26/21 01:10 Discharge Ordered Location: Home cp Problem: new cp Symptoms: have improved cp Condition: Stable cp Diagnosis - Burn of second degree of forearm - right cp Followup: cp - With: Private Physician - When: Today - Reason: Wound Recheck, [facility] \[id number], call [phone] Discharge Instructions: - Discharge Summary Sheet cp - Chemical Burn, Adult cp - Second-Degree Burn, Adult cp Forms: - Medication Reconciliation Form cp - Thank You Letter cp - Antibiotic Education cp - Prescription Opioid Use cp Signatures: Dispatcher [employer] Loly Schmitz RN RN bb Page, Corey, PA PA cp Alea Mendes MD MD sp3 Sloan Ramirez RN RN ja3 Corrections: (The following items were deleted from the chart) 01:50 00:00 Differential diagnosis: 1st degree huang, 2nd degree huang, 3rd degree huang, cp cellulitis, multiple trauma cp
[2021-09-26 03:02] VITALS: BP 127/85; TEMP 98.7; O2SAT 98
--- NOTE | 2021-09-27 20:41 | EKG ---
Test Date: 2021-09-25 Test Time: 23:51:18 Steel Buffer: LYNN MEASUREMENT RESULTS: Intervals: Rate: 79 NC: 138 QRSD: 76 QT: 374 QTc: 428 [place]: P: -1 NC: 138 QRS: 29 T: 49 INTERPRETIVE STATEMENTS: Normal sinus rhythm Early repolarization Normal ECG Compared to ECG 05/21/2018 08:55:22 No significant changes Electronically Signed On 09-27-21 20:35:30 DIRECTOR OF STUDENT AID by Hugo Blair
== END 2021-09-26 01:49 | disposition home or self-care (01) ==
LOC: ER 22:19
DX: T22.611A Corrosion of second degree of right forearm, initial encounter (principal); T79.9XXA Unspecified early complication of trauma, initial encounter; Y93.89 Activity, other specified; Y92.69 Other specified industrial and construction area as the place of occurrence of the external cause; Y99.0 Civilian activity done for income or pay; Z23 Encounter for immunization
CPT/HCPCS: 90471; 90714; 93005; 99284

== ENCOUNTER → 2024-01-21 | Emergency (ER) | payer BC, SELFPAY ==
--- NOTE | 2024-01-21 16:08 | EDPHYS ---
Physician Documentation [facility] Name: Cirilo England Age: 38 yrs Sex: Male : 1985 Arrival Date: 01/21/2024 Time: 15:28 Bed IW2 Private MD: ED Physician Donnie Moore HPI: 01/20 16:07 This 38 yrs old Black Male presents to ER via Ambulatory with complaints of Arm Burn - ms3 both, Burn on Nose - -Face. 16:07 38-year-old male with no past medical history presents to the emergency department 1 ms3 hour after having hot fluid from a car he was working on spilled on his right arm and/onto his face. Patient states his discomfort is a 5/10. Patient states his tetanus is up-to-date at this time. Patient denies any alleviating or inciting factors. Historical: - PSHx: 15:37 ankle x 2; neck surgery; kd3 - Immunization history:: Adult Immunizations up to date. - Social history:: Smoking status: unknown. ROS: 16:07 Constitutional: Negative for fever, and chills. Neck: Negative for injury, pain, and ms3 swelling, Cardiovascular: Negative for chest pain, and palpitations. Respiratory: Negative for shortness of breath, cough, wheezing, and pleuritic chest pain, Abdomen/GI: Negative for abdominal pain, nausea, vomiting, diarrhea, and constipation, MS/Extremity: Negative for injury and deformity, 16:07 Skin: Positive for burn, Exam: 16:07 Constitutional: This is a well developed, well nourished patient who is awake, alert, ms3 and in no acute distress. Head/Face: Normocephalic, atraumatic. Neck: Trachea midline, no cervical lymphadenopathy. Supple, full range of motion without nuchal rigidity, or vertebral point tenderness. No Meningismus. Chest/axilla: Normal chest wall appearance and motion. Nontender with no deformity. Cardiovascular: Regular rate and rhythm with a normal S1 and S2. No gallops, murmurs, or rubs. Normal PMI, no JVD. No pulse deficits. Respiratory: Lungs have equal breath sounds bilaterally, clear to auscultation and percussion. No rales, rhonchi or wheezes noted. No increased work of breathing, no retractions or nasal flaring. Abdomen/GI: Soft, non-tender, with normal bowel sounds. No distension or tympany. No guarding or rebound. No evidence of tenderness throughout. 16:07 Skin: injury, burn(s), 2nd degree burn injury covers approximately 1% of the total body surface area, and is located on the right arm, 3rd degree burn injury covers approximately 0.5% of the total body surface area, and is located on the right arm, Vital Signs: 15:54 BP 124 / 75; Pulse 94; Resp 19; Temp 98.2(O); Pulse Ox 96% ; Weight 86.18 kg; Height 5 kd3 ft. 10 in. ; 15:54 Body Mass Index 27.26 (86.18 kg, 177.8 cm) kd3 MDM: 15:40 Patient medically screened. ms3 16:07 Differential diagnosis: 1st degree huang, 2nd degree huang, 3rd degree huang. Data ms3 reviewed: vital signs, nurses notes, and as a result, I will discharge patient. I considered the following discharge prescriptions or medication management in the emergency department Medications were administered in the Emergency Department. See MAR. Counseling: I had a detailed discussion with the patient and/or guardian regarding the historical points, exam findings, and any diagnostic results supporting the discharge/admit diagnosis, the need for outpatient follow up, to return to the emergency department if symptoms worsen or persist or if there are any questions or concerns that arise at home. ED course: Patient with decreased sensation of burning on distal right forearm. Wound care completed in the emergency department and triple antibiotic ointment applied to huang and dressing applied. Patient to follow-up with primary care physician in 2 to 3 days for wound reevaluation. Discussed with patient burn care. All questions were answered. Return precautions discussed include worsening symptoms, or any other concerns. . 01/20 15:41 Order name: Wound Care; Complete Time: 15:53 ms3 01/20 15:41 Order name: Wound dressing; Complete Time: 15:53 ms3 Administered Medications: 15:46 Drug: Bacitracin Topical Ointment (500 unit/g) 1 application Topical once Route: kd3 Topical; Site: right upper arm; Disposition Summary: 01/21/24 16:07 Discharge Ordered Notes: Location: Home ms3 Condition: Stable ms3 Diagnosis - Burn of first degree of right forearm ms3 - Burn of third degree of right upper arm, initial encounter ms3 Followup: ms3 - With: Checo Mendes DO - When: 2 - 3 days - Reason: Recheck today's complaints Discharge Instructions: - Discharge Summary Sheet ms3 - Burn Care, Adult ms3 Forms: - Medication Reconciliation Form ms3 - Thank You Letter ms3 - Antibiotic Education ms3 - Prescription Opioid Use ms3 - Patient Portal Instructions ms3 - Leadership Thank You Letter ms3 Signatures: Donnie Moore DO DO ms3 Sulma Hurley, RN RN kd3
--- NOTE | 2024-01-21 16:08 | ER ---
Nurse's Notes [facility] Name: Cirilo England Age: 38 yrs Sex: Male : 1985 Arrival Date: 01/21/2024 Time: 15:28 Bed IW2 Private MD: Diagnosis: Burn of first degree of right forearm;Burn of third degree of right upper arm, initial encounter Presentation: 01/20 15:34 Chief complaint: Patient states: I was working on my car about an hour ago and i pulled kd3 a hose and the hose had some hot liquid that spattered up my arm and hot a little bit on my face. Its mostly on my right arm. Ebola Screen: No symptoms or risks identified at this time. Initial Sepsis Screen: Does the patient meet any 2 criteria? No. Patient's initial sepsis screen is negative. Does the patient have a suspected source of infection? No. Patient's initial sepsis screen is negative. Risk Assessment: Do you want to hurt yourself or someone else? Patient reports no desire to harm self or others. Onset of symptoms was January 21, 2024. 15:34 Method Of Arrival: Ambulatory kd3 15:54 Coronavirus screen: Vaccine status: Patient reports being unvaccinated. kd3 15:54 Acuity: NEO 4 kd3 Triage Assessment: 15:37 General: Appears in no apparent distress. Behavior is calm, cooperative. Pain: kd3 Complains of pain in right arm. Respiratory: Airway is patent Trachea midline Respiratory effort is even, unlabored, Respiratory pattern is regular, symmetrical. Injury Description: 15:38 Injury Description:. kd3 Historical: - PSHx: 15:37 ankle x 2; neck surgery; kd3 - Immunization history:: Adult Immunizations up to date. - Social history:: Smoking status: unknown. Screenin:38 [facility] ED Fall Risk Assessment (Adult) History of falling in the last 3 months, kd3 including since admission No falls in past 3 months (0 pts) Confusion or Disorientation No (0 pts) Intoxicated or Sedated No (0 pts) Impaired Gait No (0 pts) Mobility Assist Device Used No (0 pt) Altered Elimination No (0 pt) Score/Fall Risk Level 0 - 2 = Low Risk Oriented to surroundings. Abuse screen: Denies threats or abuse. Denies injuries from another. Nutritional screening: No deficits noted. Tuberculosis screening: No symptoms or risk factors identified. Assessment: 16:14 General: Wound care performed by this RN. Pt sent home with burn care instructions . kd3 16:15 Derm: Skin huang. kd3 Vital Signs: 15:54 BP 124 / 75; Pulse 94; Resp 19; Temp 98.2(O); Pulse Ox 96% ; Weight 86.18 kg; Height 5 kd3 ft. 10 in. ; 15:54 Body Mass Index 27.26 (86.18 kg, 177.8 cm) kd3 ED Course: 15:29 Patient arrived in ED. im 15:33 Donnie Moore DO is Attending Physician. ms3 15:38 Arm band placed on left wrist. kd3 15:54 Triage completed. kd3 15:58 No provider procedures requiring assistance completed. Patient did not have IV access kd3 during this emergency room visit. 15:59 Patient has correct armband on for positive identification. Provided Education on: burn kd3 care . 16:06 Checo Mendes DO is Referral Physician. ms3 16:14 Sulma Hurley, RN is Primary Nurse. kd3 Administered Medications: 15:46 Drug: Bacitracin Topical Ointment (500 unit/g) 1 application Topical once Route: kd3 Topical; Site: right upper arm; Medication: 15:58 VIS not applicable for this client. kd3 Outcome: 15:58 Discharged to home ambulatory, kd3 15:58 Condition: stable 16:07 Discharge ordered by . ms3 16:15 Discharge instructions given to patient, Instructed on discharge instructions, follow kd3 up and referral plans. Demonstrated understanding of instructions, follow-up care, 16:15 Patient left the ED. kd3 Signatures: Donnie Moore DO DO ms3 Sulma Hurley, RN RN kd3 Dior Medellin im
[2024-01-21 17:21] VITALS: BP 124/75; TEMP 98.2; O2SAT 96
== END ==
LOC: ER 15:28
DX: T22.211A Burn of second degree of right forearm, initial encounter (principal); T22.331A Burn of third degree of right upper arm, initial encounter; T31.0 Burns involving less than 10% of body surface
CPT/HCPCS: 99283

== ENCOUNTER 2025-01-09 10:42 | Emergency (ER) | payer BC ==
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
[2025-01-09 11:25] LABS: Absolute Lymphocytes (CBC) 2.8 K/uL (0.7-4.9); Absolute Monocytes 0.6 K/uL (0.1-1.3); Absolute Neutrophil 7.7 K/uL (1.8-8.0); Basophils % 0.2 % (0-1.3); Eosinophils % 0.3 % (0-4.4); Hematocrit 44.7 % (39.6-49.0); Hemoglobin 15.2 g/dL (13.6-17.9); Lymphocytes % 25.5 % (15.3-44.8); MCH 29.4 pg (27.0-35.0); MCHC 34.1 g/dL (32.0-36.0); MCV 86.2 fL (80-100); MPV 8.2 fL (7.6-11.3); Nucleated Red Blood Cells % 0.1 % (0-0); Platelets 256 thou/uL (152-406); RBC Red Blood Cell Count 5.18 M/uL (4.33-5.43); Red Cell Distribution Width 13.4 % (12.1-15.2)
--- NOTE | 2025-01-09 11:25 | RAD REPORT ---
EXAM: CT brain without contrast HISTORY: HEADACHE COMPARISON: 12/25/2015 TECHNIQUE: Multiple contiguous axial images were obtained and a CT of the brain without contrast. Sag ittal and coronal reformats were performed. One or more of the following dose reduction techniques were used: Automated exposure control, adjust ment of the mA and/or kV according to patient size, and/or iterative reconstruction. FINDINGS: No evidence of hydrocephalus, intracranial hemorrhage, or extra-axial fluid collection. 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 No evidence of midline shift or areas of brain edema. The calvarium is intact. The visualized paranasal sinuses and mastoid air cells are essentially clear . IMPRESSION: No evidence of acute intracranial abnormality.
[2025-01-09 11:33] LABS: Anion Gap 7.6 mEq/L (5.0-15.0); Potassium 3.6 mEq/L (3.5-5.1)
[2025-01-09] MEDS ORDERED: KETOROLAC 30 MG/ML INJ ONE (11:39)
[2025-01-09] MEDS ORDERED: NA CHLORIDE 0.9% 500 ML ONE (11:40)
--- NOTE | 2025-01-09 11:46 | EDPHYS ---
Physician Documentation [facility] Name: Cirilo England Age: 39 yrs Sex: Male : 1985 Arrival Date: 01/09/2025 Time: 10:42 Bed 13 Private MD: ED Physician Andriy Ziegler HPI: 01/09 11:27 This 39 yrs old Black Male presents to ER via Ambulatory with complaints of Headache. ec2 11:27 Patient arrives today for evaluation of headache. Patient reports that he has been ec2 experiencing headaches intermittently for the past several weeks. Patient attributes it to recently starting his metformin. Patient reports some occasional nausea. No vomiting, no diarrhea. Denies any head strike or injury. Denies any significant medical problems aside from diabetes. Reports he is taken [id number] medications with minimal improvement in symptoms.. Historical: - Allergies: 10:55 No Known Allergies; aa5 - Home Meds: 10:55 Metformin Oral [Active]; aa5 - PMHx: 10:55 Diabetes mellitus; aa5 - PSHx: 10:53 ankle x 2; neck surgery; aa5 - Immunization history:: Adult Immunizations unknown. - Infectious Disease History:: Denies. - Social history:: Smoking status: Patient denies any tobacco usage or history of. ROS: 11:28 Constitutional: as per hpi ec2 Exam: 11:28 Constitutional: GEN: NAD Head: atraumatic Eyes: EOMI Ears: External ears are ec2 normal. CV: regular rate LUNGS: no respiratory distress ABD: non-distended SKIN: no evidence of rashes MSK: no evidence of trauma. Neuro: Cranial nerves II through XII intact, strength intact all 4 extremities, normal [id number], no pronator drift appreciated. Vital Signs: 10:53 BP 152 / 90; Pulse 94; Resp 18 S; Temp 97.8(TE); Pulse Ox 99% on R/A; Weight 91.17 kg aa5 (R); Height 5 ft. 9 in. (R); Pain 2/10; 10:53 Body Mass Index 29.68 (91.17 kg, 175.26 cm) aa5 10:53 Pain Scale: Adult aa5 MDM: 10:56 Medical Screening Exam initiated ec2 11:28 Data reviewed: vital signs, nurses notes. ED course: Patient arrives today for ec2 evaluation of headache. Examination is revealing for neuro intact individual. CT scan of the head obtained, no evidence of intracranial mass or intracranial brain bleed. Will obtain lab work to evaluate for electrolyte disturbances as well. Also evaluating for anemia. Will treat the patient's symptoms. Differential includes those above as well as headache syndrome.. 11:39 ED course: Lab work is nonactionable. On reassessment patient is well-appearing no ec2 acute distress. Will discharge home. Turn precautions given.. 01/09 11:02 Order name: CBC with Diff; Complete Time: 11:39 ec2 01/09 11:02 Order name: BMP; Complete Time: : ec2 01/09 11:02 Order name: CT Head Brain wo Cont; Complete Time: ec2 01/09 11:02 Order name: IV; Complete Time: 11: ec2 Administered Medications: 11:38 Drug: NS 0.9% IV 500 ml IV at bolus once; to be given as a bolus over 30 minutes Route: db IV; Rate: bolus; Site: left antecubital; 11:38 Drug: Ketorolac IVP 15 mg IVP once Route: IVP; Site: left antecubital; db Disposition Summary: 01/09/25 11:46 Discharge Ordered Notes: Location: Home ec2 Condition: Stable ec2 Diagnosis - Headache ec2 Followup: ec2 - With: Private Physician - When: - Reason: Re-evaluation by your physician Discharge Instructions: - Discharge Summary Sheet ec2 - General Headache Without Cause ec2 Forms: - Medication Reconciliation Form ec2 - Antibiotic Education ec2 - Prescription Opioid Use ec2 - Patient Portal Instructions ec2 - Leadership Thank You Letter ec2 Prescriptions: - Compazine 10 mg Oral Tablet - take 1 tablet ORAL route every 8 hours As needed; 20 tablet; Refills: 0, ec2 Product Selection Permitted Signatures: Dispatcher [employer] Deloris Callaway RN RN aa5 Suzette Iverson RN RN db Andriy Ziegler MD MD ec2 Corrections: (The following items were deleted from the chart) 10:53 10:53 PSHx: ankle x 2; aa5 aa5
--- NOTE | 2025-01-09 11:46 | ER ---
Nurse's Notes [facility] Name: Cirilo England Age: 39 yrs Sex: Male : 1985 Arrival Date: 01/09/2025 Time: 10:42 Bed 13 Private MD: Diagnosis: Headache Presentation: 01/09 10:53 Chief complaint: Patient states: has been taking metformin x 1 month and has been aa5 having headaches. Coronavirus screen: headache. Ebola Screen: Patient denies travel to an Ebola-affected area in the 21 days before illness onset. Initial Sepsis Screen: Does the patient meet any 2 criteria? No. Patient's initial sepsis screen is negative. Does the patient have a suspected source of infection? No. Patient's initial sepsis screen is negative. Risk Assessment: Do you want to hurt yourself or someone else? Patient reports no desire to harm self or others. Onset of symptoms was 2024. 10:53 Method Of Arrival: Ambulatory aa5 10:53 Acuity: NEO 3 aa5 Historical: - Allergies: 10:55 No Known Allergies; aa5 - Home Meds: 10:55 Metformin Oral [Active]; aa5 - PMHx: 10:55 Diabetes mellitus; aa5 - PSHx: 10:53 ankle x 2; neck surgery; aa5 - Immunization history:: Adult Immunizations unknown. - Infectious Disease History:: Denies. - Social history:: Smoking status: Patient denies any tobacco usage or history of. Screenin:44 [facility] ED Fall Risk Assessment (Adult) History of falling in the last 3 months, db including since admission No falls in past 3 months (0 pts) Confusion or Disorientation No (0 pts) Intoxicated or Sedated No (0 pts) Impaired Gait No (0 pts) Mobility Assist Device Used No (0 pt) Altered Elimination No (0 pt) Score/Fall Risk Level 0 - 2 = Low Risk Oriented to surroundings, Maintained a safe environment. Abuse screen: Denies threats or abuse. Denies injuries from another. Nutritional screening: No deficits noted. Tuberculosis screening: No symptoms or risk factors identified. Assessment: 11:44 Reassessment: Patient appears in no apparent distress at this time. Patient and/or db family updated on plan of care and expected duration. Pain level reassessed. Patient is alert, oriented x 3, equal unlabored respirations, skin warm/dry/pink. General: Appears in no apparent distress. comfortable, Behavior is calm, cooperative. Pain: Complains of pain in head. Neuro: Level of Consciousness is awake, alert, obeys commands, Oriented to person, place, time, situation, Speech is normal, Facial symmetry appears normal, Reports headache. Cardiovascular: No deficits noted. Respiratory: Airway is patent Respiratory effort is even, unlabored, Respiratory pattern is regular, symmetrical. GI: No deficits noted. No signs and/or symptoms were reported involving the gastrointestinal system. : No deficits noted. No signs and/or symptoms were reported regarding the genitourinary system. 11:47 Reassessment: DC PENDING NS BOLUS FINISH. db 12:25 Neuro: Level of Consciousness is awake, alert, obeys commands, Oriented to person, aa5 place, time, situation. Respiratory: Airway is patent Respiratory effort is even, unlabored, Respiratory pattern is regular, symmetrical. Derm: Skin is dry, Skin is normal, Skin temperature is warm. Vital Signs: 10:53 BP 152 / 90; Pulse 94; Resp 18 S; Temp 97.8(TE); Pulse Ox 99% on R/A; Weight 91.17 kg aa5 (R); Height 5 ft. 9 in. (R); Pain 2/10; 10:53 Body Mass Index 29.68 (91.17 kg, 175.26 cm) aa5 10:53 Pain Scale: Adult aa5 ED Course: 10:46 Patient arrived in ED. cj3 10:46 Andriy Ziegler MD is Attending Physician. ec2 10:53 Arm band placed on. aa5 10:55 Triage completed. aa5 11:11 CBC with Diff Sent. bc6 11:11 BMP Sent. bc6 11:11 Initial lab(s) drawn, by me, sent to lab. Inserted saline lock: 20 gauge in left bc6 antecubital area, using aseptic technique. Blood collected. Flushed with 10 mL NS. 11:15 CT Head Brain wo Cont In Process Unspecified. EDMS 11:17 Suzette Iverson, TANNER is Primary Nurse. db 11:45 Patient has correct armband on for positive identification. Side rails up X 1. Provided db Education on: DISCHARGE AND FOLLOWUP. Warm blanket given. 12:25 IV discontinued, intact, bleeding controlled, No redness/swelling at site. Pressure aa5 dressing applied. 12:25 No provider procedures requiring assistance completed. aa5 Administered Medications: 11:38 Drug: NS 0.9% IV 500 ml IV at bolus once; to be given as a bolus over 30 minutes Route: db IV; Rate: bolus; Site: left antecubital; 11:38 Drug: Ketorolac IVP 15 mg IVP once Route: IVP; Site: left antecubital; db Medication: 11:45 VIS not applicable for this client. db Outcome: 11:46 Discharge ordered by . ec2 12:25 Discharged to home ambulatory, aa5 12:25 Condition: stable 12:25 Discharge instructions given to patient, Instructed on discharge instructions, follow up and referral plans. medication usage, Demonstrated understanding of instructions, follow-up care, medications, Prescriptions given X 1, 12:29 Patient left the ED. ty Signatures: Dispatcher [employer] Deloris Callaway RN RN aa5 Suzette Iverson RN RN Adeline Springer 6 Andriy Ziegler MD MD ec2 Leonid Ken Celeste 3 Corrections: (The following items were deleted from the chart) 10:53 10:53 PSHx: ankle x 2; aa5 aa5
[2025-01-09 12:42] VITALS: BP 152/90; TEMP 97.8; O2SAT 99
== END 2025-01-09 12:29 | disposition home or self-care (01) ==
LOC: ER 10:42
DX: R51.9 Headache, unspecified (principal); E11.9 Type 2 diabetes mellitus without complications
CPT/HCPCS: 85025; 80048; 36415; 70450; 96374; 99284; J7040